=== PATIENT | male | born 1945 | race Caucasian/White ===

== ENCOUNTER → 2023-04-04 10:15 | Outpatient (REF) | payer MEDICARE, SELFPAY | LOC: RAD 10:15 | PROVIDERS: ATTENDING PHYSICIAN Surgery Vascular Surgery; FAMILY PHYSICIAN Family Medicine | DX: I77.9 Disorder of arteries and arterioles, unspecified (principal) | CPT/HCPCS: 93922; 93925 ==

== ENCOUNTER 2023-07-01 11:56 | Emergency (ER) | payer MEDICARE, SELFPAY ==
[2023-07-01 12:02] VITALS: BP 113/49
[2023-07-01 14:00] VITALS: BP 112/68
--- NOTE | 2023-07-01 16:29 | ED.GENMED ---
History of Present Illness
General
Chief Complaint: Fall
Source: ambulance crew and correction
Exam Limitations: none
Time Seen by Provider: 07/01/23 12:07
Nursing documentation reviewed up to this point in time: agreed with
Travel History
Have you had any contact with someone who has COVID-19?: Unable to Answer
Do you have any symptoms of coronavirus? Fever > 100 degrees, chills, cough, shortness of breath, sore throat, loss of taste or smell, muscle aches, or headache?: Unable to Answer
History of Present Illness
History of Present Illness:
Patient to ED for eval s/p fall. Witnessed by his roomate. EMS reports he hit his head. No LOC. 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 He is awake and alert, cooperative.
Past History
Past History
ED Past Medical History: CAD, HTN, Hypercholesterolemia, NIDDM, Hypothyroidism and Psychiatric (Dementia)
Review of Systems
Review of Systems
Allergies reviewed?: Yes
All Other Systems: ROS reviewed and negative except as documented in HPI and ROS
Constitutional: Reports no symptoms
EENT: Reports no symptoms
Respiratory: Reports no symptoms
Cardiac: Reports no symptoms
ABD/GI: Reports no symptoms
Musculoskeletal: Reports no symptoms
Skin: Reports no symptoms
Neurological: Reports no symptoms
Psychiatric: Reports no symptoms
Phy Exam
General Physical Exam
General Presentation: well appearing and no apparent distress
General age: appears stated age
General Skin: warm and dry
General Habitus: normal
General Mental: alert
Cardiovascular Exam
Cardiovascular Exam: regular rate/rhythm and no edema
Pulmonary Exam
Pulmonary Exam: lungs clear and no respiratory distress
Gastrointestinal Exam
Gastrointestinal Exam: normal bowel sounds, non tender, soft and no organomegaly
Neurological Exam
Neurological Exam: alert, no motor deficits, no sensory deficits and speech normal
Musculoskeletal Exam
Musculoskeletal Exam: full ROM and neuro vasc intact
Skin Exam
Skin Exam: normal color, warm/dry and no rash
Psychiatric Exam
Psychiatric Exam: normal mood/affect
Course
Orders/Labs/Results
Orders:
Orders
07/01/23 11:57
CT Head W/o Iv Contrast Urgent
Comment:
Reason For Exam: fall, dementia
Vital Signs
Initial and Last Documented VS:
Initial Vital Signs
Temp Pulse Resp BP Pulse Ox
97.5 F 63 17 113/49 96
07/01/23 12:02 07/01/23 12:02 07/01/23 12:02 07/01/23 12:02 07/01/23 12:02
Last Documented Vital Signs
Temp Pulse Resp BP Pulse Ox
97.5 F 86 17 120/63 97
07/01/23 12:02 07/01/23 19:00 07/01/23 19:00 07/01/23 19:00 07/01/23 19:00
*Radiology
Radiology exam reviewed: radiology read reviewed
*Pulse Oximetry
Patient hypoxic: no
*Critical Care Note
Total Time (30-74mins, 75-104mins- exclusive of procedures): Not Applicable
ED Attending Note
-
Portions of this chart may have been created with voice recognition software.� Occasional wrong word or��sound alike� substitutions may have occurred due to the inherent limitations of voice recognition software.
Discharge Plan
Departure
Patient Disposition: Prison/SNF
Date of Disposition: 07/01/23
Time of Disposition: 16:42
Patient with high blood pressure during this ER visit?: No
Condition: Good
Covid-19: Not Applicable
Discharge Problem:
Head injury
Instructions: Head Injury in Adults (DC), Preventing falls in adults
Referrals:
Fidencio Josue MD [Family Provider] - Follow up in 2-3 days
Interventions
Interventions:
*Risk Screen - Suicide Last Done: 07/01/23 12:06
*General Assessment Last Done: 07/01/23 12:06
*Neglect/Abuse Screening Last Done: 07/01/23 12:06
*ED COVID-19 Vaccine History Last Done: 07/01/23 12:06
ED-Musculoskeletal Assessment Last Done: 07/01/23 12:06
ED- Neurological Assessment Last Done: 07/01/23 12:06
ED-Skin Assessment Last Done: 07/01/23 12:06
Discharge Date and Time
Print Language: KOSOVAN
[2023-07-01 19:00] VITALS: BP 120/63
[2023-07-01 21:43] VITALS: BP 126/78
== END 2023-07-01 21:35 ==
LOC: EMR 11:56
PROVIDERS: EMERGENCY PHYSICIAN Emergency Medicine; FAMILY PHYSICIAN Internal Medicine
DX: S09.90XA Unspecified injury of head, initial encounter (principal); W19.XXXA Unspecified fall, initial encounter; I25.10 Atherosclerotic heart disease of native coronary artery without angina pectoris; I10 Essential (primary) hypertension; E78.00 Pure hypercholesterolemia, unspecified; E11.9 Type 2 diabetes mellitus without complications; E03.9 Hypothyroidism, unspecified; F03.90 Unspecified dementia, unspecified severity, without behavioral disturbance, psychotic disturbance, mood disturbance, and anxiety
CPT/HCPCS: 99284; 70450

== ENCOUNTER 2023-07-16 17:42 | Inpatient (IN) | payer MEDICARE, SELFPAY ==
[2023-07-16] VITALS (7 sets, daily range): BP systolic 128–140; BP diastolic 48–71; BMI 18.6
[2023-07-16 15:02] LABS: % Basophils 0.3 % (0-2); % Eosinophils 2.7 % (0-6); % Immature Granulocytes 0.4 % (0-0.5); % Lymphocytes 10.2 % (20.5-51.1); % Monocytes 4.2 % (1.7-9.3); % Neutrophils 82.2 % (42.2-75.2); Absolute Eosinophils 0.3 10^3/uL (0-0.7); Absolute Monocytes 0.4 10^3/uL (0.1-0.6); Absolute Neutrophils 7.6 10^3/uL (1.4-6.5); Hematocrit 32.5 % (39.0-52.0); Hemoglobin 10.3 g/dL (13.0-18.0); Mean Corp Hgb Conc. 31.7 g/dL (33.0-37.0); Mean Corpuscular Hgb 28.9 pg (27.0-31.0); Mean Corpuscular Volume 91.3 fL (80.0-94.0); Mean Platelet Volume 9.2 fL (7.4-10.4); Nucleated Red Blood Cells % 0 % (-); Platelet Count 217 10^3/uL (130-400); Red Blood Cell Count 3.56 10^6/uL (4.70-6.10); Red Cell Dist. Width 16.1 % (11.5-14.5); White Blood Cell Count 9.3 10^3/uL (4.8-10.8)
--- NOTE | 2023-07-16 15:13 | ED.GENMED ---
History of Present Illness
General
Chief Complaint: Abnormal Lab Value
Source: senior living
Exam Limitations: dementia
Time Seen by Provider: 07/16/23 15:01
Nursing documentation reviewed up to this point in time: agreed with
Travel History
Have you had any contact with someone who has COVID-19?: No
Do you have any symptoms of coronavirus? Fever > 100 degrees, chills, cough, shortness of breath, sore throat, loss of taste or smell, muscle aches, or headache?: No
History of Present Illness
History of Present Illness:
The patient is an 78-year-old man with a past medical history of dementia who was sent due to abnormal outpatient blood work. Patient was found to have a sodium level of 150 2 days ago and a level of 151 yesterday. The patient does not offer any
history. He is alert and oriented x 0. He arrives in no acute distress but is in confused and mildly combative. Patient does not appear uncomfortable but has very dry mucous membrane.
Past History
Past History
ED Past Medical History: CAD, HTN, Hypercholesterolemia, NIDDM, Hypothyroidism and Psychiatric (Dementia)
Social History
Tobacco: Other
Alcohol: Other
Drug: Other
Personal: Other
Living: senior living
Employment: Not employed
Family History
Family History: Unable to obtain
Review of Systems
Review of Systems
Allergies reviewed?: Yes
Other source history: transfer record (correction transfer record)
All Other Systems: Not applicable
Phy Exam
Physical Exam
Physical Exam:
Physical Exam
General: no apparent distress, not acutely ill. Nontoxic. Speaking but many words I cannot understand. Fully awake
Neck: supple. Dry mucous membrane
Heart: s1/s2 regular rate and rhythm,
Lungs: no acute respiratory distress. clear bilaterally
Abdomen: normal bowel sounds. not tender. no CVAT
Neuro: alert but completely disoriented. no focal neurological deficits
Skin: no rash
Psychiatric: well kept. interactive and cooperative
Extremities: no edema. no calf tenderness. negative homans. good distal pulses
Course
Orders/Labs/Results
Orders:
Orders
07/16/23 14:39
CMP [Comprehensive Metabolic Panel] Urgent
Complete Blood Count/With Diff Urgent
Ferritin Urgent
Comment: IRON,TIBC,B12,FOLATE,FERRITIN ADDED ON BY FLOOR 4:30PM 07-16-23
Folate Urgent
Iron Urgent
Total Iron Binding Urgent
Vitamin B12 Urgent
07/16/23 15:13
Electrocardiogram (*1) Urgent
Reason for Study: Other
Other Reason for Exam: hyponatremia
EKG- Treatment ONCE
07/16/23 16:11
0.9% Sodium Chloride 1000 ml [Nss] 1,000 ml IV BOLUS
07/16/23 16:34
Add On- LAB Stat
Tests Added?: Iron, TIBC, b12, folate,ferritin
07/16/23 16:42
Admit/Transfer Patient As Directed
Co-Sign Provider:
Level of Care: Inpatient admission
Assign to:: Medical/Surgical
Physician / Group: pipe
Diagnosis: dehydration
Reason for Hospitalization: dehydration
Expected length of stay greater than two midnights?: Yes
ELOS- Estimated Length of Stay in days: 3
I certify the patient meets the requirements for IP care: Yes
07/16/23 16:45
Code Status As Directed
Resuscitation Status: Full Code
07/16/23 22:00
BMP [Basic Metabolic Panel] Stat
Abnormal Lab Results
07/16/23
14:39
RBC 3.56 L 10^6/uL
(4.70-6.10)
Hgb 10.3 L g/dL
(13.0-18.0)
Hct 32.5 L %
(39.0-52.0)
MCHC 31.7 L g/dL
(33.0-37.0)
RDW 16.1 H %
(11.5-14.5)
Absolute Neuts (auto) 7.6 H 10^3/uL
(1.4-6.5)
Absolute Lymphs (auto) 1.0 L 10^3/uL
(1.2-3.4)
Neutrophils % 82.2 H %
(42.2-75.2)
Lymphocytes % 10.2 L %
(20.5-51.1)
Sodium 155 H mmol/L
(135-145)
Chloride 121 H mmol/L
(98-107)
BUN 28 H mg/dl
(9-20)
Glucose 119 H mg/dl
(70-99)
Alkaline Phosphatase 138 H U/L
(38-126)
Albumin 3.1 L g/dl
(3.5-5.0)
07/16/23 14:39
Vital Signs
Initial and Last Documented VS:
Initial Vital Signs
Temp Pulse Resp BP Pulse Ox
99 F 78 23 134/62 99
07/16/23 14:30 07/16/23 14:30 07/16/23 14:30 07/16/23 14:30 07/16/23 14:30
Last Documented Vital Signs
Temp Pulse Resp BP Pulse Ox
99 F 72 23 134/62 99
07/16/23 14:30 07/16/23 16:00 07/16/23 16:00 07/16/23 14:43 07/16/23 14:30
MDM/Problems Addressed
Differential Diagnosis Includes:
Acute dehydration, diuretic use, renal failure, diarrhea
MDM/Problems Addressed:
Patient presents with acute hypernatremia
Chronic conditions affecting care:
Given patient has a history of dementia he is at increased risk of dehydration and hypernatremia
*Pulse Oximetry
Patient hypoxic: no
*EKG
Interpreted by ED Provider?: Yes
Interpretation: abnormal
Comparison EKG: no comparison EKG present
Rate: normal
Rhythm: sinus
[place]: left axis deviation
Interval: normal interval
QRS Pattern: normal QRS
Ischemia: non-specific ST changes
*[employer] Et[employer] Developer Interpretation
Rate: normal
Interpretation: normal
Rhythm: sinus
*Critical Care Note
Total Time (30-74mins, 75-104mins- exclusive of procedures): Not Applicable
Data Reviewed
Review of Other/Old Records Reveals: Radiology Studies (CT head reviewed from June 2023 when patient had no acute disease)
Source: senior living
Patient Management
Discussion with other providers: Hospitalist
Escalation/DeEscalation of care consider admission/obs:
Given patient's hyponatremia, decision made to admit the patient for IV fluids for likely dehydration
ED Attending Note
-
Portions of this chart may have been created with voice recognition software.� Occasional wrong word or��sound alike� substitutions may have occurred due to the inherent limitations of voice recognition software.
Discharge Plan
Departure
Patient Disposition: Admit
Date of Disposition: 07/16/23
Time of Disposition: 16:19
Admit to: Telemetry
Presentation/result/management discussed w/ accepting MD/DO: Hospitalist
Patient with high blood pressure during this ER visit?: Yes
Condition: Fair
Discharge Problem:
Acute dehydration, Acute hypernatremia
Prescriptions:
No Action
cilostazol 100 mg Tablet
100 mg PO BID
acetaminophen [Tylenol] 325 mg Tablet
650 mg PO Q6HPRN PRN (Reason: mild pain)
acetaminophen [Tylenol] 325 mg Tablet
650 mg PO DAILY
isosorbide mononitrate [Imdur] 30 mg Tablet Extended Release 24 Hr
30 mg PO DAILY
propranolol 60 mg Capsule,Extended Release 24 Hr
60 mg PO DAILY
simvastatin [Zocor] 40 mg Tablet
40 mg PO DAILY
lorazepam 0.5 mg Tablet
0.5 mg PO DAILY
magnesium hydroxide [Milk of Magnesia] 400 mg/5 mL Suspension
2,400 mg PO Q4HPRN PRN (Reason: constipation)
tamsulosin [Flomax] 0.4 mg Capsule
0.4 mg PO QPM
levothyroxine [Synthroid] 50 mcg Tablet
50 mcg PO DAILY
bisacodyl [Dulcolax (bisacodyl)] 10 mg Suppository
10 mg [place] DAILYPRN PRN (Reason: if no bm aftr mom)
ferrous sulfate 325 mg (65 mg iron) Tablet
325 mg PO DAILY
docusate sodium [Colace] 100 mg Capsule
100 mg PO BID
ezetimibe [Zetia] 10 mg Tablet
10 mg PO DAILY
memantine 10 mg Tablet
10 mg PO BID
Januvia 100 mg Tablet
100 mg PO DAILY
Referrals:
Fidencio Josue MD [Family Provider] -
Interventions
Interventions:
*Risk Screen - Suicide Last Done: 07/16/23 14:30
*General Assessment Last Done: 07/16/23 14:30
*Neglect/Abuse Screening Last Done: 07/16/23 14:30
*ED COVID-19 Vaccine History Last Done: 07/16/23 14:30
Discharge Date and Time
Print Language: DANISH
[2023-07-16 15:21] LABS: ALT (SGPT) 21 U/L (0-50); AST (SGOT) 39 U/L (17-59); Albumin 3.1 g/dl (3.5-5.0); Alkaline Phosphatase 138 U/L (38-126); Blood Urea Nitrogen 28 mg/dl (9-20); Calcium 8.8 mg/dl (8.4-10.2); Carbon Dioxide 22 mmol/L (22-30); Chloride 121 mmol/L (98-107); Glucose 119 mg/dl (70-99); Potassium 3.8 mmol/L (3.5-5.1); Sodium 155 mmol/L (135-145); Total Bilirubin 0.7 mg/dl (0.2-1.3); Total Protein 6.4 g/dl (6.3-8.2); eGFR > 60.00
[2023-07-16] MEDS: NSS 1000 IV (16:22)
--- NOTE | 2023-07-16 16:32 | HPS.HSE ---
Addendum entered and electronically signed by Abundio Carlson MD 07/16/23 18:16:
see my update note for addendum
Original Note:
Family Physician
-
Family Physician: Fidencio Josue
Chief Complaint
-
Abnormal labs
History of Present Illness
78-year-old with past medical history for peripheral artery disease, type 2 diabetes, dementia, hypertension, hyperlipidemia, coronary artery disease status post stenting presented to us with abnormal blood work from [facility]. Patient was
noted to have a sodium of 150s. Patient is poor historian. Denied any pain. On arrival sodium of 152. Patient received normal saline in ER. Admitting for further management
Medical History
Past Medical History
Past Medical History: Reports Other
Additional Past Medical History:
Hypertension
Hyperlipidemia
Type 2 diabetes
Coronary artery disease
Hypothyroidism
Peripheral artery disease
Dementia
Past Surgical History: Reports Other
Additional Past Surgical History:
Cardiac stent
Social History
Unable to obtain full social history at this time due to: Dementia
Family History
Family History: Not pertinent
Allergies / Home Medications
Allergies reflects when Allergies were last updated in [facility].
Home Medications with original date entered in [facility]
Allergy/Medication List:
Allergies
Allergy/AdvReac Type Severity Reaction Status Date / Time
atorvastatin Allergy Unknown Verified 07/01/23 12:05
Iodinated Contrast Media Allergy Unknown Verified 07/01/23 12:05
iodine Allergy Unknown Verified 07/01/23 12:05
tetanus toxoid, adsorbed Allergy Unknown Verified 07/01/23 12:05
diptheria toxoid Allergy Unknown Uncoded 07/01/23 12:05
Home Medications
acetaminophen 325 mg tablet (Tylenol) 650 mg PO DAILY 07/16/23
acetaminophen 325 mg tablet (Tylenol) 650 mg PO Q6HPRN PRN mild pain 07/16/23
bisacodyl 10 mg rectal suppository (Dulcolax (bisacodyl)) 10 mg [place] DAILYPRN PRN if no bm aftr mom 07/16/23
cilostazol 100 mg tablet 100 mg PO BID 07/16/23
docusate sodium 100 mg capsule (Colace) 100 mg PO BID 07/16/23
ezetimibe 10 mg tablet (Zetia) 10 mg PO DAILY 07/16/23
ferrous sulfate 325 mg (65 mg iron) tablet 325 mg PO DAILY 07/16/23
isosorbide mononitrate 30 mg tablet,extended release 24 hr 30 mg PO DAILY 07/16/23
levothyroxine 50 mcg tablet (Synthroid) 50 mcg PO DAILY 07/16/23
lorazepam 0.5 mg tablet 0.5 mg PO DAILY 07/16/23
magnesium hydroxide 400 mg/5 mL oral suspension (Milk of Magnesia) 2,400 mg PO Q4HPRN PRN constipation 07/16/23
memantine 10 mg tablet 10 mg PO BID 07/16/23
propranolol 60 mg capsule,24 hr,extended release 60 mg PO DAILY 07/16/23
simvastatin 40 mg tablet (Zocor) 40 mg PO DAILY 07/16/23
sitagliptin phosphate 100 mg tablet (Januvia) 100 mg PO DAILY 07/16/23
tamsulosin 0.4 mg capsule (Flomax) 0.4 mg PO QPM 07/16/23
Review of Systems
-
Constitutional: Reports No Symptoms
EENT: Reports No Symptoms
Respiratory: Reports No Symptoms
Cardiac: Reports No Symptoms
Abdomen/GI: Reports No Symptoms
: Reports No Symptoms
Musculoskeletal: Reports No Symptoms
Skin: Reports No Symptoms
Neurological: Reports No Symptoms
Endocrine: Reports No Symptoms
Hematologic/Lymphatic: Reports No Symptoms
Psych: Reports No Symptoms
Physical Exam
Vital Signs
Vital Signs
Temp Pulse Resp BP Pulse Ox
99 F 72 23 134/62 99
07/16/23 14:30 07/16/23 16:00 07/16/23 16:00 07/16/23 14:43 07/16/23 14:30
Physical Exam
General: Well Developed, Well Nourished and No Apparent Distress
HEENT: NormoCephalic, Moist mucous membranes and Atraumatic
Respiratory: Clear
Cardiac: S1/S2 and Regular Rhythm; No Murmur or Rub
GI: Soft, Non Tender, Non Distended and Normal Bowel Sounds; No Organomegaly
Rectal: Deferred by Provider
Musculoskeletal: No Clubbing, No Cyanosis and No Edema
Skin: No Rash
Neuro: Nonfocal/grossly intact
Psych: Calm
Laboratory Results
-
07/16/23 14:39
07/16/23 14:39
Laboratory Results
Total Bilirubin 0.7 mg/dl (0.2-1.3) 07/16/23 14:39
AST 39 U/L (17-59) 07/16/23 14:39
ALT 21 U/L (0-50) 07/16/23 14:39
Alkaline Phosphatase 138 U/L (38-126) H 07/16/23 14:39
Data Reviewed
-
Lab Data: Labs Reviewed by me
Impression/Plan
-
# Hyponatremia likely from dehydration
-Sodium 155
-D5W at 78 continued
-monitor BMP
-Obtain UA
# Normocytic anemia likely chronic
-Hemoglobin 10.3
-Obtain iron panel, B12, folate, ferritin, TIBC
-Ferrous sulfate continued
-Heme test
# History of peripheral artery disease
-Cilostazol continued
# Hyperlipidemia
-Zetia continued
-Zocor continued
# Type 2 diabetes
-Januvia continued
-Sliding scale
-Carb controlled diet
-Obtain A1c
# BPH
-Flomax continued
# Essential hypertension
-Isosorbide continued all continued
-Propranolol continued
# Hypothyroidism
-Levothyroxine continued
-TSH in a.m.
# Dementia
-Memantine continued
# DVT prophylaxis
- Lovenox subcu
# CODE STATUS
-Full code
-PT/OT consult
[2023-07-16 16:59] LABS: Iron 29 ug/dl (49-181)
[2023-07-16 17:08] LABS: Percent Saturation 18 % (20-50); Total Iron Binding Capacity 161 ug/dl (261-462)
[2023-07-16 18:08] LABS: Vitamin B12 878 pg/ml (239-931)
--- NOTE | 2023-07-16 18:16 | W.PN.UPDATE ---
Update Note
Progress Note Update
I saw and examined the patient.
The TELEVISION CABINET FINISHER Jeremy's note was reviewed and I agree with the note.
Comment: 78 y/o M with dementia, presents from SNF with abnormal high Na of 155. Concern for poor nutritional intake/water intake with dehydration. Patient unable to provide history due to dementia. in ER, patient received NS and was admitted.
Physical Exam
General: Well Developed, Well Nourished and No Apparent Distress
HEENT: NormoCephalic, Moist mucous membranes and Atraumatic
Respiratory: Clear
Cardiac: S1/S2 and Regular Rhythm; No Murmur or Rub
GI: Soft, Non Tender, Non Distended and Normal Bowel Sounds; No Organomegaly
Rectal: Deferred by Provider
Musculoskeletal: No Clubbing, No Cyanosis and No Edema
Skin: No Rash
Neuro: Nonfocal/grossly intact
Psych: Calm
Assessment:
Hyponatremia likely from dehydration
- FWD is 4.2 L
- D5W at 78 continued; repeat lab in AM
- monitor BMP
- Obtain UA
Normocytic anemia likely chronic
- Hemoglobin 10.3
- Obtain iron panel, B12, folate, ferritin, TIBC
- Ferrous sulfate continued
- Heme test
History of peripheral artery disease
- Cilostazol continued
Hyperlipidemia
- Zetia continued
- Zocor continued
Type 2 diabetes
- Januvia continued
- Sliding scale
- Carb controlled diet
- Obtain A1c
BPH
- Flomax continued
Essential hypertension
- Isosorbide continued all continued
- Propranolol continued
Hypothyroidism
- Levothyroxine continued
- TSH in a.m.
Dementia
- Memantine continued
DVT prophylaxis: Lovenox SC
Code: Full
[2023-07-16 21:52] LABS: Glucose - Point of Care 133 mg/dl (70-99)
[2023-07-16] MEDS: LOVENOX 40 MG SC (22:14)
[2023-07-16] MEDS: FLOMAX 0.400000000000000022 MG PO (22:14)
[2023-07-16] MEDS: COLACE 100 MG PO (22:14)
[2023-07-16] MEDS: NAMENDA 10 MG PO (22:15)
[2023-07-16] MEDS: PLETAL 100 MG PO (22:15)
[2023-07-16] MEDS: D5W 1000 IV (22:15)
[2023-07-16 22:33] LABS: Chloride 124 mmol/L (98-107); Estimated Creatinine Clearance 58 ml/min; eGFR > 60.00
[2023-07-16 22:41] LABS: Blood Urea Nitrogen 24 mg/dl (9-20); Calcium 8.3 mg/dl (8.4-10.2); Carbon Dioxide 19 mmol/L (22-30); Glucose 126 mg/dl (70-99); Potassium 3.2 mmol/L (3.5-5.1); Sodium 151 mmol/L (135-145)
[2023-07-16] MEDS: KCL 270 MEQ IV (23:35)
--- NOTE | 2023-07-17 01:48 | PTCARENOTE ---
Patient arrived to unit via stretcher around 20:00 with dx of dehydration. AAOx1 ( self) bed alarm and med sitter applied. Patient combative and uncooperative at times. Needs 2-3 nurse for care at times. Patient denies pain or discomfort. Call andre
within reach. No signs of distress noted.
[2023-07-17] MEDS: SYNTHROID 50 MCG PO (06:13)
[2023-07-17 06:33] LABS: Urine Albumin Negative (Neg - Trace); Urine Bilirubin Negative (Negative); Urine Character Clear (Clear); Urine Color Yellow; Urine Glucose Negative (Negative); Urine Ketone Trace (Negative); Urine Leukocyte Trace (Negative); Urine Nitrite Negative (Negative); Urine Occult Blood Negative (Negative); Urine Specific Gravity 1.015 (<1.030); Urine Urobilinogen Negative (Neg - 1+)
[2023-07-17 07:35] LABS: Urine Amorphous Seen; Urine Mucus Few; Urine Squamous Cell 26-30 /LPF (Few)
[2023-07-17 07:36] LABS: Urine Granular Cast 0-2 /LPF (0); Urine Red Blood Cell 0-2 /HPF (0-2); Urine White Cell 0-2 /HPF (0-5)
[2023-07-17 07:54] LABS: Glucose - Point of Care 142 mg/dl (70-99)
[2023-07-17 08:17] VITALS: BP 139/53
[2023-07-17 09:11] LABS: Hematocrit 28.9 % (39.0-52.0); Hemoglobin 9.3 g/dL (13.0-18.0); Mean Corp Hgb Conc. 32.2 g/dL (33.0-37.0); Mean Platelet Volume 9.2 fL (7.4-10.4); Platelet Count 192 10^3/uL (130-400); Red Blood Cell Count 3.21 10^6/uL (4.70-6.10); Red Cell Dist. Width 16.1 % (11.5-14.5); White Blood Cell Count 6.7 10^3/uL (4.8-10.8)
[2023-07-17 09:50] LABS: Blood Urea Nitrogen 20 mg/dl (9-20); Calcium 8.2 mg/dl (8.4-10.2); Carbon Dioxide 21 mmol/L (22-30); Chloride 121 mmol/L (98-107); Estimated Creatinine Clearance 58 ml/min; Glucose 145 mg/dl (70-99); Potassium 3.8 mmol/L (3.5-5.1); Sodium 150 mmol/L (135-145); eGFR > 60.00
[2023-07-17] MEDS: TYLENOL 650 MG PO (09:54)
[2023-07-17] MEDS: IMDUR (EXTENDED RELEASE) 30 MG PO (09:54)
[2023-07-17] MEDS: PLETAL 100 MG PO ×2 (09:54→20:34)
[2023-07-17] MEDS: ZETIA 10 MG PO (09:55)
[2023-07-17] MEDS: NAMENDA 10 MG PO ×2 (09:55→20:34)
[2023-07-17] MEDS: COLACE 100 MG PO ×2 (09:55→20:34)
[2023-07-17] MEDS: JANUVIA 100 MG PO (09:55)
[2023-07-17] MEDS: FEOSOL 325 MG PO (09:55)
[2023-07-17] MEDS: INDERAL LA 60 MG PO (09:58)
[2023-07-17] MEDS: D5W 1000 IV ×3 (10:02→20:23)
[2023-07-17] MEDS: NOVOLOG FLEXPEN-LOW RESISTANCE SC (10:02)
[2023-07-17 10:13] LABS: TSH Reflex To Free T4 2.55 uIU/ml (0.47-4.68)
--- NOTE | 2023-07-17 10:28 | W.PN.HOSP.TC ---
Addendum entered and electronically signed by Abundio Carlson MD 07/17/23 11:31:
correction: HYPER natremia
Original Note:
Today's Communication/Plan
-
continue IVF
see outlined plan
Assessment / Plan
Assessment / Plan
Assessment:
Hyponatremia likely from dehydration
- FWD is 4.2 L at time of admission
- Na most recently 150
- continue IVF as D5W, increase rate to 100/hr
- monitor BMP
Hypokalemia
- replete prn
Normocytic anemia likely anemia of chronic disease
- Hemoglobin 10.3
- iron panel consistent with AOCD, b12/folate normal
- Ferrous sulfate continues
- Heme test stools
History of peripheral artery disease
- Cilostazol continued
Hyperlipidemia
- Zetia continued
- Zocor continued
Type 2 diabetes
- Januvia continued
- Sliding scale
- Carb controlled diet
- Obtain A1c
BPH
- Flomax continued
Essential hypertension
- Isosorbide continued
- Propranolol continued
Hypothyroidism
- Levothyroxine continued
- TSH 2.55
Dementia, Alzheimer
- Memantine continued
- virtual sitter
- ST eval
DVT prophylaxis: Lovenox SC
Code: Full
Anticipated Discharge: > 48 hours
Subjective/Interval History
-
Date of Service: July 17, 2023
no overnight events
Na 150
Objective Data
-
Labs:
Laboratory Results
07/16/23 07/17/23
22:07 08:43
WBC 6.7
Hgb 9.3 L
Hct 28.9 L
Plt Count 192
Sodium 151 H 150 H
Potassium 3.2 L 3.8
Chloride 124 H 121 H
Carbon Dioxide 19 L 21 L
BUN 24 H 20
Creatinine 0.8 0.8
Glucose 126 H 145 H
Calcium 8.3 L 8.2 L
Vital Signs:
Vital Signs
Temp Pulse Resp BP Pulse Ox
98.1 F 82 20 139/53 94
07/17/23 08:17 07/17/23 08:17 07/17/23 08:17 07/17/23 08:17 07/17/23 08:17
I&O
07/16/23 07/17/23 07/18/23
06:59 06:59 06:59
Intake Total 1110 / 1110
Balance 1110 / 1110
Physical Exam
-
General: No Apparent Distress and Appears Chronically Ill
HEENT: Normocephalic; Negative Moist Mucous Membranes (dry)
Cardiac: Regular Rhythm and S1/S2
GI: Soft
Psych: Apparent Dementia
Data Reviewed
-
Total Time Spent with Patient (in minutes): 41
Labs: Labs Reviewed by me
--- NOTE | 2023-07-17 11:43 | PTOTSP ---
Dysphagia Evaluation
Patient with difficulty chewing solids due to a combination of state of dentition (edentulous upper, no posterior molars) and cognition/behavior changes secondary to dementia. No signs concerning for aspiration observed.
Recommend:
1. IDDSI Level 4 Puree, IDDSI Level 0 Thin Liquids
2. Medications - as best tolerated
3. Strategies: full supervision/assistance, small sips/bites, slow rate
4. Oral care 3x daily
5. Consider registered dietitian consult given modified diet and admission with poor intake/dehydration
6. Dysphagia therapy at the acute care level to determine if/when patient would be able to advance solids.
[2023-07-17 12:01] LABS: Glucose - Point of Care 219 mg/dl (70-99)
[2023-07-17 12:22] LABS: Glycohemoglobin (HgbA1c) 7.2 % (4.0-5.6)
[2023-07-17] MEDS: NOVOLOG FLEXPEN-LOW RESISTANCE 2 UNITS SC (13:04)
[2023-07-17 14:14] VITALS: PULSE 64; O2SAT 97
[2023-07-17 15:00] VITALS: BP 129/54
[2023-07-17 16:45] VITALS: BMI 18.6
--- NOTE | 2023-07-17 16:56 | CM ---
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
Plan; Patient to return to [facility] when stable.
[2023-07-17 17:14] LABS: Glucose - Point of Care 197 mg/dl (70-99)
[2023-07-17] MEDS: FLOMAX 0.400000000000000022 MG PO (18:03)
[2023-07-17] MEDS: LOVENOX 40 MG SC (18:03)
[2023-07-17] MEDS: NOVOLOG FLEXPEN-LOW RESISTANCE 1 UNITS SC (18:04)
[2023-07-17 21:54] LABS: Glucose - Point of Care 141 mg/dl (70-99)
[2023-07-17 23:40] VITALS: BP 136/52
[2023-07-18] MEDS: SYNTHROID 50 MCG PO (06:11)
[2023-07-18 07:00] VITALS: BP 139/47
[2023-07-18 07:00] LABS: Hematocrit 28.2 % (39.0-52.0); Hemoglobin 9.2 g/dL (13.0-18.0); Mean Corp Hgb Conc. 32.6 g/dL (33.0-37.0); Mean Corpuscular Hgb 28.4 pg (27.0-31.0); Mean Platelet Volume 9.2 fL (7.4-10.4); Platelet Count 197 10^3/uL (130-400); Red Blood Cell Count 3.24 10^6/uL (4.70-6.10); Red Cell Dist. Width 15.9 % (11.5-14.5); White Blood Cell Count 6.9 10^3/uL (4.8-10.8)
[2023-07-18 07:54] LABS: Blood Urea Nitrogen 13 mg/dl (9-20); Calcium 7.9 mg/dl (8.4-10.2); Carbon Dioxide 20 mmol/L (22-30); Chloride 113 mmol/L (98-107); Estimated Creatinine Clearance 77 ml/min; Glucose 142 mg/dl (70-99); Potassium 3.7 mmol/L (3.5-5.1); Sodium 140 mmol/L (135-145); eGFR > 60.00
[2023-07-18 07:57] LABS: Glucose - Point of Care 130 mg/dl (70-99)
[2023-07-18] MEDS: NOVOLOG FLEXPEN-LOW RESISTANCE SC ×3 (08:05→17:29)
[2023-07-18] MEDS: INDERAL LA 60 MG PO (10:17)
[2023-07-18] MEDS: JANUVIA 100 MG PO (10:17)
[2023-07-18] MEDS: ZETIA 10 MG PO (10:18)
[2023-07-18] MEDS: IMDUR (EXTENDED RELEASE) 30 MG PO (10:18)
[2023-07-18] MEDS: COLACE 100 MG PO ×2 (10:18→19:33)
[2023-07-18] MEDS: TYLENOL 650 MG PO (10:18)
[2023-07-18] MEDS: FEOSOL 325 MG PO (10:18)
[2023-07-18] MEDS: PLETAL 100 MG PO ×2 (10:18→19:33)
[2023-07-18] MEDS: NAMENDA 10 MG PO ×2 (10:18→19:33)
[2023-07-18 12:35] LABS: Glucose - Point of Care 149 mg/dl (70-99)
--- NOTE | 2023-07-18 12:38 | W.PN.HOSP.TC ---
Today's Communication/Plan
-
monitor AM labs
C discussion if family returns calls
Assessment / Plan
Assessment / Plan
Assessment:
Hypernatremia likely from dehydration
- FWD is 4.2 L at time of admission
- Na most recently 140
- cap IVF and observe
- monitor BMP
Hypokalemia
- replete prn
Normocytic anemia likely anemia of chronic disease
- Hemoglobin 10.3
- iron panel consistent with AOCD, b12/folate normal
- Ferrous sulfate continues
- Heme test stools
History of peripheral artery disease
- Cilostazol continued
Hyperlipidemia
- Zetia continued
- Zocor continued
Type 2 diabetes
- Januvia continued
- Sliding scale
- Carb controlled diet
- A1c 7.2%
BPH
- Flomax continued
Essential hypertension
- Isosorbide continued
- Propranolol continued
Hypothyroidism
- Levothyroxine continued
- TSH 2.55
Dementia, Alzheimer
- Memantine continued
- virtual sitter
- ST eval: on IDDSI 4 diet
Severe protein/caloric malnutrition of chronic illness
- ensure BID added
DVT prophylaxis: Lovenox SC
Code: Full
left multiple VMs for and son, no answer or call back.
Dispo: back to SNF when stable. Prognosis is poor.
Anticipated Discharge: 24 - 48 hours
Subjective/Interval History
-
Date of Service: July 18, 2023
Na improved
remains with limited and poor oral intake
Objective Data
-
Labs:
Laboratory Results
07/18/23
05:53
WBC 6.9
Hgb 9.2 L
Hct 28.2 L
Plt Count 197
Sodium 140 D
Potassium 3.7
Chloride 113 H
Carbon Dioxide 20 L
BUN 13
Creatinine 0.6 L
Glucose 142 H
Calcium 7.9 L
Vital Signs:
Vital Signs
Temp Pulse Resp BP Pulse Ox
98.1 F 66 18 139/47 98
07/18/23 07:00 07/18/23 10:17 07/18/23 07:00 07/18/23 10:17 07/18/23 07:00
I&O
07/17/23 07/18/23 07/19/23
06:59 06:59 06:59
Intake Total 1109 / 1110 1919
Balance 1109 / 1109
Physical Exam
-
General: Appears Chronically Ill
HEENT: Normocephalic
Respiratory: Negative Wheezes
Cardiac: Regular Rhythm
GI: Soft
Psych: Apparent Dementia
Data Reviewed
-
Total Time Spent with Patient (in minutes): 40
Labs: Labs Reviewed by me
[2023-07-18 15:00] VITALS: BP 152/60
--- NOTE | 2023-07-18 16:36 | CM ---
Patient to return to [facility] when stable.
[facility]
Report [phone]
[2023-07-18 17:27] LABS: Glucose - Point of Care 113 mg/dl (70-99)
[2023-07-18] MEDS: LOVENOX 40 MG SC (18:31)
[2023-07-18] MEDS: FLOMAX 0.400000000000000022 MG PO (18:31)
[2023-07-18 23:07] LABS: Glucose - Point of Care 113 mg/dl (70-99)
[2023-07-18 23:39] VITALS: BP 157/62
[2023-07-19] MEDS: SYNTHROID 50 MCG PO (06:11)
[2023-07-19 07:00] VITALS: BP 117/67
[2023-07-19 07:23] LABS: Glucose - Point of Care 108 mg/dl (70-99)
[2023-07-19 07:43] LABS: Hematocrit 28.2 % (39.0-52.0); Hemoglobin 9.2 g/dL (13.0-18.0); Mean Corp Hgb Conc. 32.6 g/dL (33.0-37.0); Mean Corpuscular Hgb 28.8 pg (27.0-31.0); Mean Corpuscular Volume 88.4 fL (80.0-94.0); Mean Platelet Volume 9.1 fL (7.4-10.4); Platelet Count 206 10^3/uL (130-400); Red Blood Cell Count 3.19 10^6/uL (4.70-6.10); Red Cell Dist. Width 15.4 % (11.5-14.5); White Blood Cell Count 7.2 10^3/uL (4.8-10.8)
[2023-07-19 07:59] LABS: Blood Urea Nitrogen 11 mg/dl (9-20); Calcium 8.1 mg/dl (8.4-10.2); Carbon Dioxide 22 mmol/L (22-30); Chloride 113 mmol/L (98-107); Estimated Creatinine Clearance 66 ml/min; Glucose 105 mg/dl (70-99); Sodium 142 mmol/L (135-145); eGFR > 60.00
[2023-07-19] MEDS: NOVOLOG FLEXPEN-LOW RESISTANCE SC ×2 (08:55→11:44)
--- NOTE | 2023-07-19 08:56 | PTCARENOTE ---
Jason wilder d/c'ed 0800 today
[2023-07-19] MEDS: IMDUR (EXTENDED RELEASE) PO (09:36)
[2023-07-19] MEDS: INDERAL LA PO (09:36)
[2023-07-19] MEDS: PLETAL PO (09:36)
[2023-07-19] MEDS: COLACE PO (09:36)
[2023-07-19] MEDS: FEOSOL PO (09:36)
[2023-07-19] MEDS: TYLENOL PO (09:36)
[2023-07-19] MEDS: JANUVIA PO (09:36)
[2023-07-19] MEDS: NAMENDA PO (09:36)
[2023-07-19] MEDS: ZETIA PO (09:37)
--- NOTE | 2023-07-19 09:48 | W.PN.HOSP.TC ---
Addendum entered and electronically signed by Abundio Carlson MD 07/19/23 11:25:
Dementia with behavioral disturbances (aggressive, combative or violent behavior)
Original Note:
Today's Communication/Plan
-
dc back to SNF and recommend hospice
multiple attempts to call family, VMs etc without success
Assessment / Plan
Assessment / Plan
Assessment:
Hypernatremia likely from dehydration
- FWD is 4.2 L at time of admission
- Na most recently 142
- cap IVF and observe; encourage oral intake
- monitor BMP
Hypokalemia
- replete prn
Normocytic anemia likely anemia of chronic disease
- Hemoglobin 10.3
- iron panel consistent with AOCD, b12/folate normal
- Ferrous sulfate continues
- Heme test stools
History of peripheral artery disease
- Cilostazol continued
Hyperlipidemia
- Zetia continued
- Zocor continued
Type 2 diabetes
- Januvia continued
- Sliding scale
- Carb controlled diet
- A1c 7.2%
BPH
- Flomax continued
Essential hypertension
- Isosorbide continued
- Propranolol continued
Hypothyroidism
- Levothyroxine continued
- TSH 2.55
Dementia, Alzheimer
- Memantine continued
- virtual sitter
- ST eval: on IDDSI 4 diet
Severe protein/caloric malnutrition of chronic illness
- ensure BID added
DVT prophylaxis: Lovenox SC
Code: Full
left multiple VMs for and son, no answer or call back.
Dispo: back to SNF when stable. Prognosis is poor. I have put a hospice referral into his dc paperwork.
More than 30 minutes spent in discharge including
Final examination of the patient
Summarizing hospital stay
Instructions for continuing care to all relevant caregivers
Preparation of discharge records, prescriptions, and referral forms
Total time spent (in minutes): 41
Anticipated Discharge: Today
Subjective/Interval History
-
Date of Service: July 19, 2023
intermittently eating and taking pills
Na stable 142
Objective Data
-
Labs:
Laboratory Results
07/19/23
07:12
WBC 7.2
Hgb 9.2 L
Hct 28.2 L
Plt Count 206
Sodium 142
Potassium 4.0
Chloride 113 H
Carbon Dioxide 22
BUN 11
Creatinine 0.7
Glucose 105 H
Calcium 8.1 L
Vital Signs:
Vital Signs
Temp Pulse Resp BP Pulse Ox
97.6 F 76 18 117/67 96
07/19/23 07:00 07/19/23 07:00 07/19/23 07:00 07/19/23 07:00 07/19/23 07:00
I&O
07/18/23 07/19/23 07/20/23
06:59 06:59 06:59
Intake Total 1919 60 / 60
Balance 1919 60 / 60
Physical Exam
-
General: Appears Chronically Ill
HEENT: Normocephalic
Respiratory: Negative Wheezes or Rales
Cardiac: Regular Rhythm and S1/S2
Psych: Calm and Apparent Dementia
Data Reviewed
-
Total Time Spent with Patient (in minutes): 41
Labs: Labs Reviewed by me
--- NOTE | 2023-07-19 09:53 | W.DS.TRANS ---
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
-
Discharge Instructions:
Discharge Diagnosis/Procedures dementia, FTT, hypernatremia, dehydration
Diet Regular
Additional Diets encourage diet as able. If not eating well to
meet nutritional needs, discuss with family
alternative feeding vs more appropriately
hospice care.
Activity As tolerated
Other Services Hospice
Instructions:
Stand-Alone Forms:
Changes to Home Medications: No
Discharge Medications:
DC Medications w/original date entered in [employer]ob[employer]
acetaminophen 325 mg tablet (Tylenol) 650 mg PO DAILY Pain 07/16/23
acetaminophen 325 mg tablet (Tylenol) 650 mg PO Q6HPRN PRN mild pain 07/16/23
bisacodyl 10 mg rectal suppository (Dulcolax (bisacodyl)) 10 mg OR DAILYPRN PRN if no bm aftr mom 07/16/23
cilostazol 100 mg tablet 100 mg PO BID Blood Clot Prevention/Tx 07/16/23
docusate sodium 100 mg capsule (Colace) 100 mg PO BID Constipation 07/16/23
ezetimibe 10 mg tablet (Zetia) 10 mg PO DAILY High Cholesterol 07/16/23
ferrous sulfate 325 mg (65 mg iron) tablet 325 mg PO DAILY Supplement 07/16/23
isosorbide mononitrate 30 mg tablet,extended release 24 hr 30 mg PO DAILY Heart Disease/Condition 07/16/23
levothyroxine 50 mcg tablet (Synthroid) 50 mcg PO DAILY Thyroid 07/16/23
magnesium hydroxide 400 mg/5 mL oral suspension (Milk of Magnesia) 2,400 mg PO Q4HPRN PRN constipation 07/16/23
memantine 10 mg tablet 10 mg PO BID Neurological Condition 07/16/23
propranolol 60 mg capsule,24 hr,extended release 60 mg PO DAILY Blood Pressure 07/16/23
simvastatin 40 mg tablet (Zocor) 40 mg PO DAILY High Cholesterol 07/16/23
sitagliptin phosphate 100 mg tablet (Januvia) 100 mg PO DAILY Diabetes 07/16/23
tamsulosin 0.4 mg capsule (Flomax) 0.4 mg PO QPM Urinary Issue 07/16/23
lorazepam 0.5 mg tablet 0.5 mg PO DAILY Mental Health/Anxiety #5 tabs 07/19/23
Home Medication Changes
Pending Results: No
Total time spent discharging patient (in min): 44
--- NOTE | 2023-07-19 10:01 | CM ---
Addendum entered by Padmini Patterson 07/19/23 10:56:
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 Message left with patient's son, Manuel [phone] by returned case inspector and IMM discussed and copy provided.
Original Note:
Patient is for discharge to [facility] today, returned case inspector attempted to contact patient's spouse however no answer, voice mail left for spouse. student accounts manager also reached out to [facility] where patient resides to inform themn that family
have not return calls to hospital.
Plan; Patient to transfer to [facility] today.
Report [phone]
--- NOTE | 2023-07-19 11:18 | PN.CDI ---
CDI
- -
CDI:
Physician Documentation Request
Admit Date: 07/16/23 17:42
Dear Doctor Robyn,
Patient admitted with hypernatremia.
07/18 PN, 'Dementia, Alzheimer- Memantine continued- virtual sitter.'
07/16 PCN, 'Patient combative and uncooperative at times. Needs 2-3 nurse for care at times.'
Based on the above, could you clarify in the Progress Notes and Discharge Summary which, if any of the following, is the most likely etiology of the confusion/altered mental status.
Dementia with behavioral disturbances (aggressive, combative or violent behavior)
Dementia only
Other
Use of terms such as suspected, likely, concern for, or probable (associated with a specific diagnosis that is being evaluated, monitored, or treated as if it exists) are acceptable and can be coded in the inpatient setting, when documented at the
time of discharge.
Thank you,
Kailey HOOD,RN,CCDS
CDI Specialist
Available via tiger text
Please use your independent medical judgment in providing your response.
[2023-07-19 11:36] LABS: Glucose - Point of Care 120 mg/dl (70-99)
[2023-07-19 15:00] VITALS: BP 95/61
== END 2023-07-19 17:43 | DRG 56 ==
LOC: 4 WEST ACU 17:42
PROVIDERS: Physician Assistant; Registered Nurse; ADMITTING PHYSICIAN Internal Medicine; EMERGENCY PHYSICIAN Emergency Medicine; FAMILY PHYSICIAN Internal Medicine
DX: G30.9 Alzheimer's disease, unspecified (principal); E43 Unspecified severe protein-calorie malnutrition; E87.0 Hyperosmolality and hypernatremia; Z68.1 Body mass index [BMI] 19.9 or less, adult; F02.811 Dementia in other diseases classified elsewhere, unspecified severity, with agitation; E03.9 Hypothyroidism, unspecified; E11.51 Type 2 diabetes mellitus with diabetic peripheral angiopathy without gangrene; E78.00 Pure hypercholesterolemia, unspecified; I10 Essential (primary) hypertension; N40.0 Benign prostatic hyperplasia without lower urinary tract symptoms; E87.6 Hypokalemia; R62.7 Adult failure to thrive; D63.8 Anemia in other chronic diseases classified elsewhere; I25.10 Atherosclerotic heart disease of native coronary artery without angina pectoris; E86.0 Dehydration; Z95.5 Presence of coronary angioplasty implant and graft; Z88.7 Allergy status to serum and vaccine; Z88.8 Allergy status to other drugs, medicaments and biological substances; Z91.041 Radiographic dye allergy status; Z79.890 Hormone replacement therapy; Z79.84 Long term (current) use of oral hypoglycemic drugs
CPT/HCPCS: 80048; 80053; 81003; 81015; 82607; 82728; 82746; 82962; 83036; 83540; 83550; 84443; 85025; 85027; 92526; 92610; 93005; 96360; 97163; 99285